=== PATIENT | male | born 1940 | race Caucasian/White ===

== ENCOUNTER 2016-11-28 22:34 | Inpatient (IN) | payer MEDICARE, OTHER ==
[~2016-11-28] VITALS: Ht 177.8 cm; Wt 99.0 kg
[~2016-11-28 22:34] MED LIST: ADLT ASA LOW81 MG PO; AMOXICILLIN500 MG PO; BUSPIRONE5 MG PO; CELEXA20 MG PO; CENTRUM SILVER OR; CLARITIN10 M1 PO; DOXYCYCL HYC100 MG PO; FLOMAX0.4 M1 PO; FLORASTOR250 M1 PO; FLUTICASONE50 MCG; FLUZONE SPLT1 M1 IM; FUROSEMIDE40 MG PO; ISOSORB DIN30 MG OR; METOPROL TAR25 MG PO; NITROGLYCER0.4 MG SL; OMEPRAZOLE20 MG PO; SIMVASTATIN20 MG PO; SPIRONOLACT25 MG PO; XANAX0.5 MG PO
[2016-11-28 23:08] LABS: HEMOGLOBIN 11.1 g/dl (14.0-18.0); IMMATURE GRANULOCYTES 0.5 % (0.0-1.0); MEAN CELL VOLUME 103.7 fL CALC (80.0-100.0); MEAN CORPUSCULAR HGB 33.8 pG CALC (26.0-32.0); MEAN CORPUSCULAR HGB CONC 32.6 g/L CALC (32.0-36.0); NEUT# 2.77 thou/uL (1.82-7.42); RED BLOOD COUNT 3.28 mill/uL (4.70-6.10); RED CELL DISTRI WIDTH 23.5 % (11.5-15.5)
[2016-11-28 23:21] LABS: ALBUMIN 3.8 g/dL (3.2-5.0); BILIRUBIN, TOTAL 1.7 mg/dL (0.0-1.4); CALCIUM 9.3 mg/dL (8.4-10.2); CREATININE 3.2 mg/dL (0.7-1.3); POTASSIUM 4.1 mmol/l (3.5-5.1); TOTAL PROTEIN 6.8 g/dL (6.3-8.2)
[2016-11-28 23:25] LABS: INTERNATIONAL NORMALIZED RATIO 2.2 RATIO (0.7-1.3); PROTHROMBIN TIME 25.5 SECONDS (9.0-12.5)
[2016-11-28] MEDS ORDERED: LIPITOR40 M1 PO (23:44)
[2016-11-28] MEDS ORDERED: CITALOPRAM10 MG PO (23:45)
[2016-11-28] MEDS ORDERED: MELATONIN5 M3 PO (23:47)
[2016-11-28] MEDS ORDERED: MIDODRINE5 MG PO (23:49)
[2016-11-28] MEDS ORDERED: RENA-VIT1 PO (23:52)
[2016-11-28] MEDS ORDERED: [UNRECOGNIZED DRUG - CODE] (23:52)
[2016-11-28] MEDS ORDERED: TYLENOL PM PO (23:57)
[2016-11-28] MEDS ORDERED: WARFARIN2 MG PO (23:58)
[2016-11-29] VITALS (14 sets, daily range): BP systolic 82–98; BP diastolic 52–68
[2016-11-29] MEDS ORDERED: HYDROXYZ HCL25 MG PO (00:02)
[2016-11-29] MEDS ORDERED: MILK OF MAG30 ML/UDC PO (00:03)
[2016-11-29] MEDS ORDERED: LASIX 80 MG TAB80 M1 PO ×2 (00:36)
[2016-11-29] MEDS ORDERED: [UNRECOGNIZED DRUG - OTHER] (00:38)
[2016-11-29] MEDS ORDERED: SENNA-TABS8.6 MG PO (00:39)
[2016-11-29 06:38] LABS: HEMOGLOBIN 11.2 g/dl (14.0-18.0); MEAN CELL VOLUME 103.9 fL CALC (80.0-100.0); MEAN CORPUSCULAR HGB 33.2 pG CALC (26.0-32.0); RED BLOOD COUNT 3.37 mill/uL (4.70-6.10); RED CELL DISTRI WIDTH 23.2 % (11.5-15.5)
[2016-11-29 08:50] LABS: CALCIUM 9.1 mg/dL (8.4-10.2); CREATININE 3.3 mg/dL (0.7-1.3); POTASSIUM 4.1 mmol/l (3.5-5.1)
[2016-11-30] VITALS (8 sets, daily range): BP systolic 87–96; BP diastolic 55–63
[2016-11-30 05:46] LABS: HEMATOCRIT 35.1 % (39.0-50.0); HEMOGLOBIN 11.2 g/dl (14.0-18.0); IMMATURE GRANULOCYTES 0.3 % (0.0-1.0); MEAN CELL VOLUME 103.8 fL CALC (80.0-100.0); MEAN CORPUSCULAR HGB 33.1 pG CALC (26.0-32.0); MEAN CORPUSCULAR HGB CONC 31.9 g/L CALC (32.0-36.0); NEUT# 2.27 thou/uL (1.82-7.42); RED BLOOD COUNT 3.38 mill/uL (4.70-6.10); RED CELL DISTRI WIDTH 23.4 % (11.5-15.5)
[2016-11-30 05:50] LABS: CALCIUM 9.4 mg/dL (8.4-10.2); CREATININE 4.1 mg/dL (0.7-1.3); POTASSIUM 4.4 mmol/l (3.5-5.1)
[2016-11-30 09:41] LABS: PROTHROMBIN TIME 22.4 SECONDS (9.0-12.5)
== END 2016-11-30 11:35 | DRG 377 ==
LOC: ENPENDDIS → ED 22:34 → ED-I 11-29 00:33 → ED 11-29 00:54 → ICU 11-29 00:55
PROVIDERS: Emergency Medicine; Internal Medicine; ADMIT Internal Medicine; ATTEND Internal Medicine
PROC: 0D9670Z Drainage of Stomach with Drainage Device, Via Natural or Artificial Opening (ICD-10-PCS; principal; 2016-11-29)
DX: K92.0 Hematemesis (principal); N18.6 End stage renal disease; I13.2 Hypertensive heart and chronic kidney disease with heart failure and with stage 5 chronic kidney disease, or end stage renal disease; D68.32 Hemorrhagic disorder due to extrinsic circulating anticoagulants; C91.41 Hairy cell leukemia, in remission; I48.91 Unspecified atrial fibrillation; K74.60 Unspecified cirrhosis of liver; I50.22 Chronic systolic (congestive) heart failure; R14.0 Abdominal distension (gaseous); T45.515A Adverse effect of anticoagulants, initial encounter; Z66 Do not resuscitate; I25.10 Atherosclerotic heart disease of native coronary artery without angina pectoris; K21.9 Gastro-esophageal reflux disease without esophagitis; Z99.2 Dependence on renal dialysis; Z95.810 Presence of automatic (implantable) cardiac defibrillator
CPT/HCPCS: S0164

== ENCOUNTER 2016-12-31 16:01 | Emergency (ER) | payer MEDICARE, OTHER ==
[~2016-12-31] VITALS: Ht 177.8 cm; Wt 94.5 kg
[~2016-12-31 16:01] MED LIST changes: +CITALOPRAM10 MG PO; +HYDROXYZ HCL25 MG PO; +LASIX 80 MG TAB80 M1 PO; +LIPITOR40 M1 PO; +MELATONIN5 M3 PO; +MIDODRINE5 MG PO; +MILK OF MAG30 ML/UDC PO; +RENA-VIT1 PO; +SENNA-TABS8.6 MG PO; +TYLENOL PM PO; +WARFARIN2 MG PO; +[UNRECOGNIZED DRUG - CODE]; +[UNRECOGNIZED DRUG - OTHER]
[2016-12-31] MEDS ORDERED: CIPROFLOXACN750 MG PO (16:26)
[2016-12-31 17:44] VITALS: BP 100/49
== END 2016-12-31 17:44 | disposition home or self-care (01) ==
LOC: ED 16:01
DX: N47.1 Phimosis (principal); I50.9 Heart failure, unspecified; N18.6 End stage renal disease; F41.9 Anxiety disorder, unspecified; K21.9 Gastro-esophageal reflux disease without esophagitis; I48.91 Unspecified atrial fibrillation; E78.5 Hyperlipidemia, unspecified; F32.9 Major depressive disorder, single episode, unspecified; Z95.0 Presence of cardiac pacemaker; Z99.2 Dependence on renal dialysis

== ENCOUNTER 2017-01-01 01:53 | Emergency (ER) | payer MEDICARE, OTHER ==
[~2017-01-01] VITALS: Ht 177.8 cm; Wt 94.5 kg
[~2017-01-01 01:53] MED LIST changes: +CIPROFLOXACN750 MG PO
[2017-01-01 02:34] LABS: HEMATOCRIT 32.9 % (39.0-50.0); HEMOGLOBIN 10.5 g/dl (14.0-18.0); IMMATURE GRANULOCYTES 0.2 % (0.0-1.0); MEAN CELL VOLUME 110.8 fL CALC (80.0-100.0); MEAN CORPUSCULAR HGB 35.4 pG CALC (26.0-32.0); MEAN CORPUSCULAR HGB CONC 31.9 g/L CALC (32.0-36.0); NEUT# 3.33 thou/uL (1.82-7.42); RED BLOOD COUNT 2.97 mill/uL (4.70-6.10); RED CELL DISTRI WIDTH 21.2 % (11.5-15.5)
[2017-01-01 02:51] LABS: ALBUMIN 3.7 g/dL (3.2-5.0); BILIRUBIN, TOTAL 2.2 mg/dL (0.0-1.4); CALCIUM 9.3 mg/dL (8.4-10.2); CREATININE 4.7 mg/dL (0.7-1.3); POTASSIUM 4.1 mmol/l (3.5-5.1); TOTAL PROTEIN 6.7 g/dL (6.3-8.2)
[2017-01-01 03:23] LABS: INTERNATIONAL NORMALIZED RATIO 2.8 RATIO (0.7-1.3); PROTHROMBIN TIME 33.5 SECONDS (9.0-12.5)
[2017-01-01 07:50] VITALS: BP 80/54
== END 2017-01-01 08:34 ==
LOC: ED 01:53
PROVIDERS: Emergency Medicine
DX: R10.13 Epigastric pain (principal); I12.0 Hypertensive chronic kidney disease with stage 5 chronic kidney disease or end stage renal disease; N18.6 End stage renal disease; Z99.2 Dependence on renal dialysis

== ENCOUNTER 2017-01-06 14:51 | Emergency (ER) | payer MEDICARE, OTHER ==
[~2017-01-06] VITALS: Ht 177.8 cm; Wt 100.0 kg
[2017-01-06 17:40] LABS: HEMATOCRIT 32.4 % (39.0-50.0); HEMOGLOBIN 10.4 g/dl (14.0-18.0); IMMATURE GRANULOCYTES 1.1 % (0.0-1.0); MEAN CELL VOLUME 109.5 fL CALC (80.0-100.0); MEAN CORPUSCULAR HGB 35.1 pG CALC (26.0-32.0); MEAN CORPUSCULAR HGB CONC 32.1 g/L CALC (32.0-36.0); RED BLOOD COUNT 2.96 mill/uL (4.70-6.10); RED CELL DISTRI WIDTH 20.8 % (11.5-15.5)
[2017-01-06 17:56] LABS: ALBUMIN 3.7 g/dL (3.2-5.0); BILIRUBIN, TOTAL 2.9 mg/dL (0.0-1.4); CALCIUM 8.7 mg/dL (8.4-10.2); TOTAL PROTEIN 6.7 g/dL (6.3-8.2)
[2017-01-06 18:13] LABS: CREATININE 5.5 mg/dL (0.7-1.3); POTASSIUM 5.9 mmol/l (3.5-5.1)
[2017-01-06 18:15] LABS: INTERNATIONAL NORMALIZED RATIO > 10.0 RATIO (0.7-1.3); PROTHROMBIN TIME > 130.0 SECONDS (9.0-12.5)
[2017-01-06 18:45] VITALS: BP 88/52
== END 2017-01-06 19:15 ==
LOC: ED 14:51
PROVIDERS: Emergency Medicine
DX: I95.9 Hypotension, unspecified (principal); R53.1 Weakness; R74.8 Abnormal levels of other serum enzymes; N18.6 End stage renal disease; F41.9 Anxiety disorder, unspecified; K21.9 Gastro-esophageal reflux disease without esophagitis; F32.9 Major depressive disorder, single episode, unspecified; E78.5 Hyperlipidemia, unspecified; Z99.3 Dependence on wheelchair; Z99.2 Dependence on renal dialysis; I48.91 Unspecified atrial fibrillation; Z95.0 Presence of cardiac pacemaker